=== PATIENT | female | born 1990 | race Caucasian/White ===

== ENCOUNTER 2022-09-25 13:05 | Outpatient (CLI) | payer MEDICAID | END 2022-09-25 13:06 | disposition home or self-care (01) | LOC: CSHLAB 13:05 | PROVIDERS: ATTEND Obstetrics & Gynecology | DX: Z01.812 Encounter for preprocedural laboratory examination (principal); Z87.410 Personal history of cervical dysplasia | CPT/HCPCS: 84703; 85027; 86850; 86900; 86901 ==

== ENCOUNTER 2022-09-30 05:34 | Day surgery (SDC) | payer OTHER ==
[2022-09-25 16:14] LABS: Mean Corpuscular HGB CONC 32.3 g/dL (32.0-36.0); Mean Corpuscular Hemoglobin 24.3 pg (27.0-33.0); Mean Corpuscular Volume 75.3 fl (81.6-98.3); Mean Platelet Volume 9.9 fl (7.4-10.4); Platelet Count 363 10x3/uL (150-450); Red Blood Cell (RBC) Count 4.53 10x6/uL (3.90-5.03)
[2022-09-25 16:15] LABS: BHCG - Serum Negative (NEGATIVE); Pregs Control Background? CLEAR/WHITE (CLR/WHITE); Pregs Control Bar Appear? YES (CONTROL BAR)
[2022-09-28 15:04] VITALS: BMI 41.5
[2022-09-30] MEDS ORDERED: Gabapentin 300 MG CAP ONE (06:25)
[2022-09-30] MEDS ORDERED: CeleCOXIB 100 MG CAP ONE (06:25)
[2022-09-30] MEDS ORDERED: Famotidine/PF 20 mg/2ml Vial ONE (06:25)
[2022-09-30] MEDS ORDERED: EPINEPHrine 1 MG/ML AMP ONE (06:30)
[2022-09-30] MEDS ORDERED: Bupivacaine PF 0.5% 30 ML VIAL ONE (06:30)
[2022-09-30] MEDS ORDERED: Methylene Blue 50 MG/10 ML AMPUL ONE (06:31)
[2022-09-30] MEDS ORDERED: Glycopyrrolate 0.2 MG/ML 5 ML SYRINGE ONE (06:39)
[2022-09-30] MEDS ORDERED: Lidocaine 1% PF 5 ML VIAL ONE (06:39)
[2022-09-30] MEDS ORDERED: Midazolam HCl 2 mg/2 ml Vial ONE ×2 (06:39→07:19)
[2022-09-30] MEDS ORDERED: PROPOFOL 20 ML ONE (06:39)
[2022-09-30] MEDS ORDERED: Ondansetron PF 4 MG/2 ML Vial ONE (06:39)
[2022-09-30] MEDS ORDERED: Rocuronium Bromide 10 MG/ML (10ML VIAL) ONE (06:39)
[2022-09-30] MEDS ORDERED: Ketorolac Tromethamine 30 MG/ML VIAL ONE (06:39)
[2022-09-30] MEDS ORDERED: Fentanyl 100 MCG/2 ML VIAL ONE ×2 (06:41→07:49)
[2022-09-30] MEDS ORDERED: CEFAZOLIN 2 GM VIAL ONE (07:17)
[2022-09-30] MEDS ORDERED: Ropivacaine 0.2% 550 ML 750 ML NERVE BLCK SCH (09:30)
== END 2022-09-30 11:50 | disposition home or self-care (01) ==
LOC: CSHSDC 05:34
PROVIDERS: ATTEND Obstetrics & Gynecology
PROC: 0UT94ZZ Resection of Uterus, Percutaneous Endoscopic Approach (ICD-10-PCS; principal; 2022-09-30)
PROC: 0UT74ZZ Resection of Bilateral Fallopian Tubes, Percutaneous Endoscopic Approach (ICD-10-PCS; principal; 2022-09-30)
DX: D06.0 Carcinoma in situ of endocervix (principal); N92.0 Excessive and frequent menstruation with regular cycle; E66.9 Obesity, unspecified; F17.210 Nicotine dependence, cigarettes, uncomplicated; Z79.899 Other long term (current) drug therapy
CPT/HCPCS: 84703; 85027; 86850; 86900; 86901; 88307; 88341; 88342; A4306; J0171; J1885; J2250; J2405; J2704; J2795; J3010; Q9968; S0020; S0028

== ENCOUNTER 2023-10-12 05:58 | Day surgery (SDC) | payer OTHER ==
[2023-10-11 09:20] VITALS: BMI 44.4
[2023-10-12] MEDS ORDERED: PROPOFOL 40 ML ONE (08:32)
[2023-10-12] MEDS ORDERED: fentaNYL 50 mcg/mL 1 mL Vial ONE (08:33)
== END 2023-10-12 09:35 | disposition home or self-care (01) ==
LOC: CSHSDC 05:58
PROVIDERS: ATTEND Internal Medicine Gastroenterology
PROC: 0DB38ZX Excision of Lower Esophagus, Via Natural or Artificial Opening Endoscopic, Diagnostic (ICD-10-PCS; principal; 2023-10-12)
DX: K21.00 Gastro-esophageal reflux disease with esophagitis, without bleeding (principal); K22.89 Other specified disease of esophagus; F41.9 Anxiety disorder, unspecified; E66.9 Obesity, unspecified; Z91.040 Latex allergy status; Z88.8 Allergy status to other drugs, medicaments and biological substances; Z68.41 Body mass index [BMI] 40.0-44.9, adult; Z79.899 Other long term (current) drug therapy
CPT/HCPCS: 88305; J2704; J3010